=== PATIENT | male | born 1945 | race Caucasian/White ===

== ENCOUNTER 2020-05-06 00:23 | Emergency (ER) | payer OTHER ==
[~2020-05-06] VITALS: Ht 160 cm; Wt 93.9 kg
[~2020-05-06 00:23] MED LIST: ASPIRIN ADULT L81 M3 PO; DITROPAN XL5 MG PO; LANTUS100 U/ML SC; LOSARTAN POTAS100 M1 PO; METFORMIN HCL500 M4 PO; RENA-VITE RX1 TAB PO; SIMVASTATIN20 M1 PO; TOPROL XL50 MG PO
[2020-05-06 00:31] VITALS: Ht 160 cm; Wt 93.9 kg
[2020-05-06 02:41] LABS: BASOPHIL % 0.6 % (0.2-1.5); PLATELET COUNT 163 x10^3mcL (152-348); RED CELL DISTRIBUTION WIDTH 14.4 % (12.1-16.2)
[2020-05-06 02:49] LABS: C REACTIVE PROTEIN 9.2 mg/dL (<=0.9); CALCIUM 8.8 mg/dL (8.5-10.1); CARBON DIOXIDE 24.1 mmol/L (21-32); CHLORIDE SERUM 100 mmol/L (98-107); CREATININE SERUM 3.5 mg/dL (0.7-1.3); GLUCOSE SERUM 121 mg/dL (74-106); POTASSIUM SERUM 4.4 mmol/L (3.5-5.1); SODIUM SERUM 135 mmol/L (136-145)
[2020-05-06 04:11] LABS: ERYTHROCYTE SED RATE 97 mm/hr (0-20)
[2020-05-06] MEDS ORDERED: HCTZ/TRIAMTEREN1 CA1 PO (05:45)
[2020-05-06 07:47] VITALS: BP 105/66
== END 2020-05-06 07:47 | disposition short-term general hospital (02) ==
LOC: ED 00:23
PROVIDERS: Emergency Medicine
DX: M54.2 Cervicalgia (principal); E11.22 Type 2 diabetes mellitus with diabetic chronic kidney disease; I12.9 Hypertensive chronic kidney disease with stage 1 through stage 4 chronic kidney disease, or unspecified chronic kidney disease; N18.9 Chronic kidney disease, unspecified; N17.9 Acute kidney failure, unspecified; E78.5 Hyperlipidemia, unspecified; Z20.822 Contact with and (suspected) exposure to COVID-19
CPT/HCPCS: J0696; J3370; J7030; J7050; J7060